=== PATIENT | female | born 1940 | race Caucasian/White ===

== ENCOUNTER 2017-03-08 05:59 | Emergency (ER) | payer MEDICARE, OTHER ==
[~2017-03-08] VITALS: Ht 162.6 cm; Wt 54.5 kg
[2017-03-08 06:02] VITALS: TEMP 97.9
[2017-03-08] MEDS ORDERED: LEVOXYL0.05 MG PO (07:06)
[2017-03-08] MEDS ORDERED: NEURONTIN300 MG/CAP PO (07:07)
[2017-03-08] MEDS ORDERED: PRINIVIL20 MG PO (07:07)
[2017-03-08] MEDS ORDERED: PERCOCET 325 MG1 TAB PO (07:07)
[2017-03-08] MEDS ORDERED: ATIVAN 0.50.5 MG/TAB PO (07:08)
[2017-03-08 07:32] LABS: HEMOGLOBIN 12.6 g/dl (12.5-16.0); MEAN CELL VOLUME 93 fl (80.0-100.0); MEAN CORPUSCULAR HEMOGLOBIN 32 pg (27.0-31.0); MEAN CORPUSCULAR HGB CONC 34 g/dl (33.0-37.0); MEAN PLATELET VOLUME 8.7 fl (7.4-10.4); PLATELET COUNT 80 K/mm3 (130-400); RED BLOOD COUNT 3.97 M/mm3 (4.10-5.30); REDCELL DISTRIBUTION WIDTH-CV 12.7 % (11.5-14.5); WHITE BLOOD COUNT 11.1 K/mm3 (4.8-10.8)
[2017-03-08 07:42] LABS: ADD PATHOLOGY DIFF REVIEW NO; HEMATOCRIT 36.8 % (37.0-47.0)
[2017-03-08 07:47] LABS: INR 1.1 (0.8-3.0); PROTHROMBIN TIME 12.5 SECONDS (9.7-12.8)
[2017-03-08 07:56] LABS: ADJUSTED CALCIUM 8.9 mg/dL (8.4-10.2); BILIRUBIN,TOTAL 0.9 mg/dL (0.0-1.0); CALCIUM 8.9 mg/dL (8.4-10.2); CREATININE, serum 0.65 mg/dL (0.52-1.25); POTASSIUM 3.3 mmol/L (3.4-5.0); TOTAL PROTEIN 7.3 gm/dL (6.4-8.2)
[2017-03-08 08:00] LABS: PH 7 (5-8); SQUAMOUS EPITHELIAL 0-2 /hpf; URINE APPEARANCE Clear; URINE BACTERIA Rare /hpf; URINE BILIRUBIN Negative (NEGATIVE); URINE BLOOD 3+ (NEGATIVE); URINE COLOR Yellow; URINE GLUCOSE Negative (NEGATIVE); URINE KETONE Trace (NEGATIVE); URINE RBC 20-50 /hpf; URINE UROBILINOGEN Negative (NEGATIVE)
[2017-03-08 08:06] LABS: PROLACTIN 18.5 ng/mL (3.0-18.6)
[2017-03-08] MEDS ORDERED: ZOFRAN ODT4 MG PO (08:18)
[2017-03-08 08:29] VITALS: BP 134/84; PULSE 83
[2017-03-08 08:30] LABS: BAND 2 % (0-10); NEUTROPHILS 92 % (42.0-75.2); TOTAL CELLS COUNTED 100
[2017-03-08 08:35] LABS: PLATELET ESTIMATE DECREASED (NORMAL)
== END 2017-03-08 09:32 | disposition home or self-care (01) ==
LOC: COL.ER 05:59
PROVIDERS: Family Medicine
DX: E86.0 Dehydration (principal); K52.9 Noninfective gastroenteritis and colitis, unspecified; I10 Essential (primary) hypertension; G89.29 Other chronic pain; M54.9 Dorsalgia, unspecified
CPT/HCPCS: J2405

== ENCOUNTER 2017-03-08 22:54 | Observation (INO) | payer MEDICARE, OTHER ==
[~2017-03-08] VITALS: Ht 162.6 cm; Wt 44.5 kg
[~2017-03-08 22:54] MED LIST: ATIVAN 0.50.5 MG/TAB PO; LEVOXYL0.05 MG PO; NEURONTIN300 MG/CAP PO; PERCOCET 325 MG1 TAB PO; PRINIVIL20 MG PO; ZOFRAN ODT4 MG PO
[2017-03-08 23:36] LABS: BASO % 0.3 % (0.0-2.0); EOS % 0.2 % (0-4.0); GRAN # 7.9 (1.4-6.5); GRAN % 87.7 % (42.2-75.2); HEMOGLOBIN 12.4 g/dl (12.5-16.0); LYMPH # 0.5 (1.2-3.4); LYMPH % 5.1 % (20.0-51.0); MEAN CELL VOLUME 93 fl (80.0-100.0); MEAN CORPUSCULAR HEMOGLOBIN 32 pg (27.0-31.0); MEAN CORPUSCULAR HGB CONC 34 g/dl (33.0-37.0); MEAN PLATELET VOLUME 8.6 fl (7.4-10.4); MONO # 0.6 (0.1-0.6); MONO % 6.1 % (1.7-9.3); PLATELET COUNT 83 K/mm3 (130-400); RED BLOOD COUNT 3.91 M/mm3 (4.10-5.30)
[2017-03-08 23:54] LABS: ADJUSTED CALCIUM 8.9 mg/dL (8.4-10.2); ALANINE AMINOTRANSFERASE 19 U/L (9-52); ALKALINE PHOSPHATASE 75 U/L (50-136); ANION GAP 11 mmol/L (7-16); BILIRUBIN,TOTAL 0.9 mg/dL (0.0-1.0); BLOOD UREA NITROGEN 21 mg/dL (7-17); C-REACTIVE PROTEIN 1.1 mg/dL (0.0-0.9); CALCIUM 8.9 mg/dL (8.4-10.2); CARBON DIOXIDE 30 mmol/L (22-30); CHLORIDE 96 mmol/L (98-107); CREATININE, serum 0.78 mg/dL (0.52-1.25); GLUCOSE 113 mg/dL (74-106); LIPASE 41 U/L (23-300); POTASSIUM 3.5 mmol/L (3.4-5.0); SODIUM 137 mmol/L (137-145); TOTAL PROTEIN 7.2 gm/dL (6.4-8.2)
[2017-03-09] LABS: HEMATOCRIT 36.5 % (37.0-47.0)
[2017-03-09 01:34] LABS: PH 5 (5-8); SQUAMOUS EPITHELIAL 0-2 /hpf; URINE APPEARANCE Clear; URINE BACTERIA None Seen /hpf; URINE BILIRUBIN Negative (NEGATIVE); URINE BLOOD 3+ (NEGATIVE); URINE COLOR Yellow; URINE GLUCOSE Negative (NEGATIVE); URINE KETONE Trace (NEGATIVE); URINE UROBILINOGEN Negative (NEGATIVE); URINE WBC 0-2 /hpf
[2017-03-09 02:19] VITALS: BP 187/81; PULSE 82; TEMP 98.2
[2017-03-09 07:54] VITALS: BP 177/85; PULSE 84; TEMP 98.8
[2017-03-09 11:41] VITALS: BP 153/65; PULSE 59; TEMP 99
[2017-03-09 16:00] VITALS: BP 147/70; PULSE 110; TEMP 98.4
[2017-03-09 19:44] VITALS: BP 144/90; PULSE 97; TEMP 98.2
[2017-03-10 00:16] VITALS: BP 141/74; PULSE 50; TEMP 98.3
[2017-03-10 04:16] VITALS: BP 123/60; PULSE 53; TEMP 97.2
[2017-03-10 07:44] LABS: BASO % 0.4 % (0.0-2.0); EOS # 0.1 (0.0-0.7); EOS % 0.6 % (0-4.0); GRAN # 6.5 (1.4-6.5); GRAN % 83.3 % (42.2-75.2); LYMPH # 0.7 (1.2-3.4); LYMPH % 8.6 % (20.0-51.0); MEAN CELL VOLUME 94 fl (80.0-100.0); MEAN CORPUSCULAR HEMOGLOBIN 32 pg (27.0-31.0); MEAN CORPUSCULAR HGB CONC 34 g/dl (33.0-37.0); MEAN PLATELET VOLUME 9.5 fl (7.4-10.4); MONO # 0.5 (0.1-0.6); MONO % 6.8 % (1.7-9.3); PLATELET COUNT 92 K/mm3 (130-400); REDCELL DISTRIBUTION WIDTH-CV 13.2 % (11.5-14.5); WHITE BLOOD COUNT 7.8 K/mm3 (4.8-10.8)
[2017-03-10 08:10] LABS: ADJUSTED CALCIUM 8.9 mg/dL (8.4-10.2); ALBUMIN 4.1 gm/dL (3.5-5.0); BILIRUBIN,TOTAL 1.1 mg/dL (0.0-1.0); CREATININE, serum 0.71 mg/dL (0.52-1.25); MAGNESIUM 1.8 mg/dL (1.6-2.3); POTASSIUM 3.6 mmol/L (3.4-5.0); TOTAL PROTEIN 7.5 gm/dL (6.4-8.2)
[2017-03-10 08:13] LABS: HEMATOCRIT 35.7 % (37.0-47.0)
[2017-03-10 09:21] VITALS: BP 174/87; PULSE 73; TEMP 97.6
[2017-03-10] MEDS ORDERED: PROTONIX 40MG T40 MG PO (10:03)
[2017-03-10] MEDS ORDERED: ZESTRIL40 MG PO (10:07)
[2017-03-10] MEDS ORDERED: DIFLUCAN 100MG100 MG PO (10:08)
[2017-03-10] MEDS ORDERED: NEURONTIN300 MG/CAP PO (11:28)
== END 2017-03-10 15:15 | disposition home or self-care (01) ==
LOC: COL.ER 22:54 → MEDICAL 03-09 01:23
PROVIDERS: Emergency Medicine; Internal Medicine
DX: R10.13 Epigastric pain (principal); B37.0 Candidal stomatitis; I16.0 Hypertensive urgency; F03.90 Unspecified dementia, unspecified severity, without behavioral disturbance, psychotic disturbance, mood disturbance, and anxiety; E03.9 Hypothyroidism, unspecified; F17.210 Nicotine dependence, cigarettes, uncomplicated
CPT/HCPCS: 99233-AI; C9113; G0378; G8978-GP; G8979-GP; J1650; J2405; J7030; Q9967

== ENCOUNTER 2017-03-21 00:05 | Emergency (ER) | payer MEDICARE, OTHER ==
[~2017-03-21] VITALS: Ht 162.6 cm; Wt 44.5 kg
[~2017-03-21 00:05] MED LIST changes: +DIFLUCAN 100MG100 MG PO; +PROTONIX 40MG T40 MG PO; +ZESTRIL40 MG PO
[2017-03-21 00:07] VITALS: TEMP 98.5
[2017-03-21 02:14] VITALS: BP 110/70; PULSE 80
== END 2017-03-21 02:00 | disposition home or self-care (01) ==
LOC: COL.ER 00:05
DX: K56.41 Fecal impaction (principal); I10 Essential (primary) hypertension; F03.90 Unspecified dementia, unspecified severity, without behavioral disturbance, psychotic disturbance, mood disturbance, and anxiety; E03.9 Hypothyroidism, unspecified

== ENCOUNTER 2017-03-28 18:37 | Emergency (ER) | payer MEDICARE, OTHER ==
[~2017-03-28] VITALS: Ht 162.6 cm; Wt 45.5 kg
[2017-03-28 18:39] VITALS: TEMP 97.6
[2017-03-28 20:42] LABS: BASO % 0.4 % (0.0-2.0); EOS # 0.2 (0.0-0.7); EOS % 2.2 % (0-4.0); GRAN # 5.1 (1.4-6.5); LYMPH # 0.9 (1.2-3.4); LYMPH % 13.5 % (20.0-51.0); MEAN CELL VOLUME 94 fl (80.0-100.0); MEAN CORPUSCULAR HGB CONC 34 g/dl (33.0-37.0); MEAN PLATELET VOLUME 9.2 fl (7.4-10.4); MONO # 0.5 (0.1-0.6); MONO % 7.6 % (1.7-9.3); PLATELET COUNT 109 K/mm3 (130-400); RED BLOOD COUNT 3.76 M/mm3 (4.10-5.30); REDCELL DISTRIBUTION WIDTH-CV 13.4 % (11.5-14.5); WHITE BLOOD COUNT 6.8 K/mm3 (4.8-10.8)
[2017-03-28 20:52] LABS: HEMATOCRIT 35.2 % (37.0-47.0); HEMOGLOBIN 11.9 g/dl (12.5-16.0); MEAN CORPUSCULAR HEMOGLOBIN 32 pg (27.0-31.0)
[2017-03-28 20:53] LABS: ADJUSTED CALCIUM 8.8 mg/dL (8.4-10.2); ALANINE AMINOTRANSFERASE 23 U/L (9-52); ALBUMIN 3.8 gm/dL (3.5-5.0); ALKALINE PHOSPHATASE 87 U/L (50-136); ANION GAP 12 mmol/L (7-16); BILIRUBIN,TOTAL 0.7 mg/dL (0.0-1.0); BLOOD UREA NITROGEN 20 mg/dL (7-17); CALCIUM 8.6 mg/dL (8.4-10.2); CARBON DIOXIDE 26 mmol/L (22-30); CHLORIDE 102 mmol/L (98-107); CREATININE, serum 0.75 mg/dL (0.52-1.25); GLUCOSE 96 mg/dL (74-106); POTASSIUM 3.8 mmol/L (3.4-5.0); SODIUM 140 mmol/L (137-145); TOTAL PROTEIN 7.3 gm/dL (6.4-8.2)
[2017-03-28 21:04] LABS: TROPONIN-I < 0.012 ng/mL (0.000-0.034)
[2017-03-28] MEDS ORDERED: PERCOCET 325 MG1 TA2 PO (21:56)
[2017-03-28 22:18] VITALS: BP 167/94; PULSE 74
== END 2017-03-28 22:20 | disposition home or self-care (01) ==
LOC: COL.ER 18:37
PROVIDERS: Emergency Medicine
DX: M84.48XA Pathological fracture, other site, initial encounter for fracture (principal); I71.2 Thoracic aortic aneurysm, without rupture; I10 Essential (primary) hypertension; F17.210 Nicotine dependence, cigarettes, uncomplicated; G40.909 Epilepsy, unspecified, not intractable, without status epilepticus
CPT/HCPCS: A9284; J2270; Q9967

== ENCOUNTER 2017-03-31 16:25 | Emergency (ER) | payer MEDICARE, OTHER ==
[~2017-03-31] VITALS: Ht 162.6 cm; Wt 45.5 kg
[~2017-03-31 16:25] MED LIST changes: +PERCOCET 325 MG1 TA2 PO
[2017-03-31 16:27] VITALS: BP 118/65; PULSE 89; TEMP 98.2
[2017-03-31] MEDS ORDERED: PERCOCET 325 MG1 TAB PO (17:14)
== END 2017-03-31 17:30 | disposition home or self-care (01) ==
LOC: COL.ER 16:25
DX: S22.42XD Multiple fractures of ribs, left side, subsequent encounter for fracture with routine healing (principal); X58.XXXD Exposure to other specified factors, subsequent encounter; G89.29 Other chronic pain; I71.9 Aortic aneurysm of unspecified site, without rupture